=== PATIENT | female | born 2000 | race Caucasian/White ===

== ENCOUNTER 2023-01-18 02:40 | Emergency (ER) | payer SELFPAY ==
[~2023-01-18] VITALS: Ht 167.6 cm; Wt 90.7 kg
[2023-01-18 02:40] VITALS: BP 122/73; PULSE 83; RESP 16; TEMP 96.5; O2SAT 98
[2023-01-18] MEDS ORDERED: PNV,1TAB PO (04:43)
[2023-01-18 05:53] VITALS: BP 122/73; PULSE 83; RESP 16; TEMP 96.5; O2SAT 98
== END 2023-01-18 05:53 ==
LOC: MED 02:40
DX: O26.891 Other specified pregnancy related conditions, first trimester (principal); Z3A.10 10 weeks gestation of pregnancy
CPT/HCPCS: 81025; 99283

== ENCOUNTER 2023-10-15 20:20 | Emergency (ER) | payer MEDICAID ==
[~2023-10-15] VITALS: Ht 165.1 cm; Wt 90.7 kg
[~2023-10-15 20:20] MED LIST: PNV,1TAB PO
[2023-10-15 20:26] VITALS: BP 123/75; PULSE 90; RESP 16; TEMP 97.4; O2SAT 98
[2023-10-15 21:00] VITALS: BP 123/75; PULSE 90; RESP 16; TEMP 97.4; O2SAT 98
[2023-10-15] MEDS ORDERED: CEPH-588 PO (21:06)
[2023-10-15] MEDS ORDERED: BACTO TP (21:06)
== END 2023-10-15 21:08 | disposition home or self-care (01) ==
LOC: MED 20:20
DX: O99.712 Diseases of the skin and subcutaneous tissue complicating pregnancy, second trimester (principal); L03.311 Cellulitis of abdominal wall; Z79.2 Long term (current) use of antibiotics; Z79.899 Other long term (current) drug therapy; W57.XXXA Bitten or stung by nonvenomous insect and other nonvenomous arthropods, initial encounter; Y92.89 Other specified places as the place of occurrence of the external cause; Y93.89 Activity, other specified; Y99.8 Other external cause status
CPT/HCPCS: 99283

== ENCOUNTER 2024-02-14 22:51 | Emergency (ER) | payer MEDICAID ==
[~2024-02-14] VITALS: Ht 167.6 cm; Wt 110.7 kg
[~2024-02-14 22:51] MED LIST changes: +BACTO TP; +CEPH-588 PO
[2024-02-14 23:03] VITALS: BP 141/86; PULSE 93; RESP 18; TEMP 98; O2SAT 98
[2024-02-15 00:05] VITALS: O2SAT 98
== END 2024-02-15 03:11 | disposition left against medical advice (07) ==
LOC: MED 22:51
DX: O26.893 Other specified pregnancy related conditions, third trimester (principal); R10.33 Periumbilical pain; Z3A.34 34 weeks gestation of pregnancy; Z79.899 Other long term (current) drug therapy
CPT/HCPCS: 76805; 99284; Q0092

== ENCOUNTER 2024-03-05 04:30 | Emergency (ER) | payer MEDICAID ==
[~2024-03-05] VITALS: Ht 167.6 cm; Wt 106.8 kg
[2024-03-05 04:38] VITALS: BP 130/97; PULSE 74; RESP 18; TEMP 97.7; O2SAT 99
[2024-03-05] MEDS: ACETAMINOPHEN EXTRA STRENGTH 500 MG TAB PO ONE (05:16)
[2024-03-05] MEDS: ALUMINUM HYD/MAG/SIMETHICONE 30 ML UDC PO ONE (05:16)
[2024-03-05] MEDS: ONDANSETRON 4 MG ODT PO ONE (05:18)
[2024-03-05 05:39] LABS: BASOPHILS % (AUTO) 0.3 % (0.0-2.0); EOSINOPHILS # (AUTO) 0.1 K/uL (0-0.4); HEMATOCRIT 38.8 % (36-48); HEMOGLOBIN 13.2 g/dL (12.0-16.0); LYMPHOCYTES # (AUTO) 1.6 K/uL (2.5-16.5); LYMPHOCYTES % (AUTO) 16.6 % (20.5-51.1); MEAN CORPUSCULAR HEMOGLOBIN 28 pg (27-31); MEAN CORPUSCULAR HGB CONC 34 g/dL (33-37); MEAN CORPUSCULAR VOLUME 82.6 fL (80-94); MONOCYTES # (AUTO) 0.6 K/uL (0.8-1.0); NEUTROPHILS # (AUTO) 7.2 K/uL (1.8-7.7); NEUTROPHILS % (AUTO) 76.1 % (42.2-75.2); PLATELET COUNT (AUTO) 234 K/uL (140-450); RED CELL DISTRIBUTION WIDTH 16.1 % (11.6-13.7); WHITE BLOOD COUNT (AUTO) 9.4 K/uL (4.8-10.8)
[2024-03-05 05:52] LABS: ALBUMIN 2.4 g/dL (3.4-5.0); ANION GAP 13.1 (8-16); CALCIUM 8.5 mg/dL (8.5-10.1); CARBON DIOXIDE 21.5 mmol/L (21-32); CREATININE 0.7 mg/dL (0.6-1.3); POTASSIUM 3.6 mmol/L (3.5-5.1); TOTAL BILIRUBIN 0.4 mg/dL (0.0-1.0); TOTAL PROTEIN, SERUM 6.5 g/dL (6.4-8.2)
[2024-03-05 06:50] VITALS: BP 130/97; PULSE 74; RESP 18; TEMP 97.7; O2SAT 99
== END 2024-03-05 06:50 | disposition home or self-care (01) ==
LOC: MED 04:30
DX: O26.893 Other specified pregnancy related conditions, third trimester (principal); R10.13 Epigastric pain; Z3A.37 37 weeks gestation of pregnancy; Z79.899 Other long term (current) drug therapy
CPT/HCPCS: 36415; 80053; 83690; 85025; 99284; Q0162

== ENCOUNTER 2024-03-13 17:23 | Emergency (ER) | payer MEDICAID ==
[~2024-03-13] VITALS: Ht 167.6 cm; Wt 113.0 kg
[2024-03-13 17:23] VITALS: BP 119/88; PULSE 96; RESP 18; TEMP 97.7; O2SAT 100
== END 2024-03-13 18:05 | disposition home or self-care (01) ==
LOC: MED 17:23
DX: O26.893 Other specified pregnancy related conditions, third trimester (principal); Z02.89 Encounter for other administrative examinations; R03.0 Elevated blood-pressure reading, without diagnosis of hypertension; Z3A.36 36 weeks gestation of pregnancy; Z79.899 Other long term (current) drug therapy
CPT/HCPCS: 99283